=== PATIENT | female | born 1940 | race Caucasian/White ===

== ENCOUNTER 2018-02-01 09:32 | Day surgery (SDC) ==
[2018-02-01] MEDS: AK-DILATE 10% OPTH SOL OP PRN ×4 (09:56→10:08)
[2018-02-01] MEDS: TETRACAINE 0.5% UNIT-DOSE OP PRN ×3 (09:56→10:28)
[2018-02-01] MEDS: CYCLOGYL 2% OPTH OP PRN ×3 (09:57→10:08)
[2018-02-01] MEDS: OCUFEN 0.03% OPTH SOL OP PRN ×3 (09:58→10:28)
[2018-02-01 10:03] VITALS: TEMP 98.8
[2018-02-01] MEDS ORDERED: LIDOCAINE HCL 1% SDV INJ STA (10:03)
[2018-02-01] MEDS ORDERED: DIAMOX PO STA (10:03)
[2018-02-01] MEDS ORDERED: LIDOCAINE 1% 20 ML MDV ID STA (10:03)
[2018-02-01] MEDS ORDERED: DIPRIVAN 20 ML VIAL IVP ONE (11:30)
[2018-02-01] MEDS ORDERED: VERSED ONE (11:30)
[2018-02-01] MEDS ORDERED: BETADINE OPTH PREP OP ONE (11:40)
[2018-02-01] MEDS ORDERED: ADRENALIN 1:1000 SDV IR STA (11:45)
[2018-02-01 13:03] VITALS: BP 112/51
--- NOTE | 2018-02-02 13:45 | OP ---
PREOPERATIVE DIAGNOSIS: ADVANCED NUCLEAR SCLEROTIC CATARACT RIGHT EYE. POSTOPERATIVE DIAGNOSIS: SAME. OPERATION PHACOEMULSIFICATION ASPIRATION OF CATARACT RIGHT EYE. PLACEMENT OF POSTERIOR CHAMBER LENS. PHACO TIME 49.2 SECONDS AT 10% POWER. LENS MODEL ALFRED [id number]. DIOPTER +21.5D. TECHNIQUE: CLEAR CORNEA. ANESTHESIA: TOPICAL ANESTHESIA W/ANESTHESIA MONITORING. OPERATIVE REPORT: Topical anesthesia consisting of Tetracaine was applied to the cornea and Xylocaine Methyl Paraben free of MFP was injected intracamerally into the anterior chamber. The patient was then brought into the operating room , prepped and draped in the usual ophthalmic manner. A lid speculum was placed and the operating microscope was used. A paracentesis was made at the 3 o' clock position. A clear corneal incision was made just out to the limbus. The anterior chamber was entered just inside the clear cornea. Viscoelastic was injected into the anterior chamber. A capsulotomy was performed with a bent # 27 gauge needle. Phacoemulsification was then performed in the posterior chamber. After completion of the phacoemulsification, residual cortical material was aspirated with the irrigation-aspiration system. The posterior capsule was polished. Viscoelastic was injected into the anterior and posterior chambers to inflate the capsular bag. Lens were placed via an Unfolder system and stabilized in the bag. Viscoelastic was removed from the anterior chamber. The wound was checked for any leakage. The four sponges were removed from the fornix. Topical antibiotic steroid and nonsteroidal drops were also applied to the cornea. A Win shield was applied. The patient left the operating room in good condition without any complications. ADDENDUM: The patient was agitated so Propofol was given. INTRAOPERATIVE MEDICATIONS: Xylocaine Methyl Paraben Free MPF MTDD
== END 2018-02-01 12:35 | disposition home or self-care (01) ==
LOC: SURG 09:32
PROVIDERS: ATTEND Ophthalmology
DX: H25.11 Age-related nuclear cataract, right eye (principal)

== ENCOUNTER 2018-03-29 07:07 | Outpatient (CLI) ==
--- NOTE | 2018-03-29 12:27 | MRI ---
Exam: MRI of the pelvis with and without contrast. /HISTORY/> Complex solid appearing lesion in the left ovary on prior ultrasound. Procedures: Axial, sagittal and coronal T2, axial T1W in and out of phase, axial STIR, axial T2 and T1 fat-saturated images of the pelvis were obtained prior to the intravenous administration of 15 ml Omniscan. Postcontrast axial, sagittal and coronal T1 fat-saturated images of the pelvis were obtain ed. Comparison: The first page of the report for the 03/08/2018 pelvic ultrasound from [facility] is reviewed. The images are not available. Findings: The visualized loops of large and small bowel appear nondilated. The urinary bladder is n ondistended. The right ovary is not visualized. In the left pelvis is a cystic and solid mass measu ring up to 4.8 cm x 2.6 cm, with a 3.7 cm x 2.6 cm T2 solid appearing hypointense, T1 hypointense, T1 mildly hyperintense component that does not demonstrate significant enhancement. This demonstrates no significant signal drop on opposed phase imaging. There is no diffusion restriction. This directl y abuts the adjacent sigmoid colon. No free fluid or lymphadenopathy is identified in the pelvis. Th ere are degenerative findings in the hips and spine. Impressions: 4.8 cm x 2.6 cm complex cystic and solid mass in the left pelvis with a solid component measuring 3.7 cm x 2.6 cm, as described. Gynecologic consultation is recommended to consider excisi on. Prior hysterectomy. No pelvic lymphadenopathy is identified.
== END 2018-03-29 07:08 | disposition home or self-care (01) ==
LOC: RAD 07:07
PROVIDERS: ATTEND Internal Medicine
DX: N83.292 Other ovarian cyst, left side (principal)
CPT/HCPCS: 36415; 82565

== ENCOUNTER 2018-12-23 07:02 | Outpatient (CLI) ==
--- NOTE | 2018-12-23 11:25 | DI ---
EXAM: CHEST FRONTAL AND LATERAL VIEWS HISTORY: Shortness of breath, cough. COMPARISON: 02/04/2012 FINDINGS: Heart size and mediastinal contour remain within normal limits. Mild to moderate athero sclerotic disease. No acute infiltrates are seen. No vascular congestion. There is no consolidatio n, visible pleural fluid or pneumothorax. Bones reveal no acute fracture. IMPRESSION: No acute cardiopulmonary process.
--- NOTE | 2018-12-27 09:38 | ECHO2D ---
Date of Exam: 12/23/18 Ordering Physician: DR. LOUISE CHAU Room #: OP Reason for Echo: SOB, CHEST PAIN M-Mode Normal Adult Results LV Dimensions Normal Adult Results AoV Opening excursions >1.6 >1.6 LVEDD-base- 3.5-5.8 3.7 Ao root dimensions 2.0-3.7 3.0 LVESD-base- 3.1-4.6 L. Atrium dimensions 1.9-3.8 5.0 Post. Wall thickness 0.8-1.1 1.2 IV septum (thickness) 0.7-1.2 1.2 Post. Wall excursion 0.72-1.3 NORMAL Septal motion NORMAL Systolic motion R. Ventricular cavity 1.5-2.0 NORMAL LVEF 60% 78% Paradoxical septal wall motion NORMAL 2-D : 2-D M Mode Echocardiogram was performed using apical four chamber and left parasternal long and short axis views. Mitral, tricuspid and aortic valves appear to be normal. Contractility of the left ventricle seems to be normal, so is the cavity size. Enlarged Left atrial cavity size. Aortic root appears to be normal. There is no pericardial effusion. There is no thrombus noted in the left ventricular or left aortic cavity. No mitral valve prolapse noted. M-MODE: MV: NORMAL AV: NORMAL TV: NORMAL PV: CHAMBER SIZE: ENLARGED LEFT ATRIAL CAVITY WALL MOTION: NORMAL PERICARDIUM: NORMAL INTERPRETATION: 1. BORDERLINE LEFT VENTRICULAR HYPERTROPHY WITH ENLARGED LEFT ATRIAL CAVITY 2. NORMAL VALVES 3. NORMAL LEFT VENTRICULAR CONTRACTILITY MTDD
== END 2018-12-23 07:03 | disposition home or self-care (01) ==
LOC: CAR 07:02
PROVIDERS: ATTEND Internal Medicine
DX: R06.02 Shortness of breath (principal); R05 Cough; R07.9 Chest pain, unspecified

== ENCOUNTER 2018-12-28 06:43 | Outpatient (CLI) ==
[2018-12-28] MEDS ORDERED: DOBUTAMINE 500 MG-D5W 250 ML 250 ML IV ONE (07:06)
[2018-12-28] MEDS ORDERED: ATROPINE SULFATE PFS ONE (07:06)
[2018-12-28] MEDS ORDERED: ATROPINE SULFATE PFS IVP STA (07:48)
[2018-12-28] MEDS ORDERED: DOBUTAMINE 500 MG-D5W 250 ML 500 MG in PREMIX 250 ML D5W 1 BAG IV SCH (08:00)
--- NOTE | 2018-12-29 11:19 | DOBSTECHO ---
Date of Test: 12/28/18 Ordering Physician: DR. LOUISE CHAU Occupation: RETIRED Smoking History: NONE Reason for Examination: SOB, CHEST PAIN WITH EXERTION Current Medications: TELMISARTAN, HYDROCODONE, ATORVASTATIN, ATIVAN, ESOMEPRAZOLE, DULOXETINE, CARVEDILOL, COLESEVELAM Height: 65" Weight: 176 LBS Target Heart Rate: 119/141 S-T Segment Stage Time HR BPM BP MMHG Rhythm +/- Elevation Depression Symptoms Control Sitting 63 BPM 132/0 SR X NONE Dobutamine 250mg/D5W 5cmg/KG/mn 10cmg/KG/mn 3" 72 BPM 140/86 SR X NONE 15cmg/KG/mn 2" 65 BPM 152/82 SR X NONE 20cmg/KG/mn 2" 68 BPM 160/88 SR X NONE 25cmg/KG/mn 2" 80 BPM 196/90 SR X NONE 30cmg/KG/mn 2" 92 BPM 208/88 SR X .25 ATROPINE 35cmg/KG/mn :16 93 BPM SR X NONE 40cmg/KG/mn 4 MIN POST INFUSION z 83 BPM 180/84 SR X NONE 10 MIN POST INFUSION z 78 BPM 158/76 SR X NONE DURATION OF INFUSION 11:13 MAXIMUM HEART RATE REACHED 93 BPM 96% OXYGEN SATURATION WITH DOBUTAMINE INFUSION Interpretation: 1. NO EVIDENCE OF ISCHEMIA FROM RESTING HEART RATE 63 BPM TO 93 BPM ACHIEVED WITH DOBUTAMINE INFUSION 2. NO CHEST PAIN OR DISCOMFORT 3. TEST WAS STOPPED BECAUSE OF SEVERE HYPERTENSION WITH INFUSION 4. NORMAL LEFT VENTRICULAR CONTRACTILITY OF LEFT VENTRICLE BY ECHO--RESTING AND WITH DOBUTAMINE INFUSION MTDD
--- NOTE | 2018-12-29 11:24 | ECHOSTRESS ---
Date of Exam: 12/28/18 Ordering Physician: DR. LOUISE CHAU Reason for Echo: SOB, CHEST PAIN WITH EXERTION, DOBUTAMINE STRESS--NO ISCHEMIA M-Mode Normal Adult Results LV Dimensions Normal Adult Results AoV Opening excursions >1.6 LVEDD-base- 3.5-5.8 Ao root dimensions 2.0-3.7 LVESD-base- 3.1-4.6 L. Atrium dimensions 1.9-3.8 Post. Wall thickness 0.8-1.1 IV septum (thickness) 0.7-1.2 Post. Wall excursion 0.72-1.3 Septal motion Systolic motion R. Ventricular cavity 1.5-2.0 LVEF 60% Paradoxical septal wall motion 2-D: NORMAL LEFT VENTRICULAR CONTRACTILITY--RESTING AND WITH DOBUTAMINE INFUSION M-MODE: MV: AV: TV: PV: CHAMBER SIZE: WALL MOTION: NORMAL LEFT VENTRICULAR CONTRACTILITY--RESTING AND WITH DOBUTAMINE INFUSION PERICARDIUM: INTERPRETATION: 1. NORMAL LEFT VENTRICULAR CONTRACTILITY--RESTING AND WITH DOBUTAMINE INFUSION MTDD
== END 2018-12-28 06:44 | disposition home or self-care (01) ==
LOC: CAR 06:43
PROVIDERS: ATTEND Internal Medicine
DX: R06.02 Shortness of breath (principal); R07.9 Chest pain, unspecified